=== PATIENT | female | born 1980 | race American Indian/Alaskan Native ===

== ENCOUNTER 2019-11-16 10:30 | Emergency (ER) | payer BC ==
[2019-11-16 10:38] VITALS: BP 133/85
--- NOTE | 2019-11-16 11:28 | Event Note ---
ED Screening Note ED Screening Note: a week ago states that twisted her ankle a week ago did not fall to the ground c/o right heel and right ankle pain tingling in the toes no numbness or complete weakness never injured herself before she is ambulatory PMHx HTN allergy: tramadol PCP: jose whelan TTP and edema over the right lateral malleolus This initial assessment/diagnostic orders/clinical plan/treatment(s) is/are subject to change based on patients health status, clinical progression and re- assessment by fellow clinical providers in the ED. Further treatment and workup at subsequent clinical providers discretion. Patient/guardian urged not to elope from the ED as their condition may be serious if not clinically assessed and managed. Initial orders include: XR right ankle/foot
--- NOTE | 2019-11-16 12:15 | XRay Report ---
RIGHT FOOT, 3 VIEWS 11/16/2019 INDICATION / CLINICAL INFORMATION: right ankle/foot pain. COMPARISON: None available. FINDINGS: Degenerative changes are seen in the first metatarsal phalangeal joint. Posterior plantar calcaneal spurring is noted. No fracture or dislocation. Signer Name: Panfilo Rouse MD Signed: 11/16/2019 12:11 PM Workstation Name: [id number]
--- NOTE | 2019-11-16 12:17 | XRay Report ---
RIGHT ANKLE 3 VIEWS INDICATION / CLINICAL INFORMATION: right ankle/foot pain COMPARISON: None available. FINDINGS: BONES / JOINT(S): No acute fracture or subluxation. Moderate/large calcaneal spur at the site of tru chment of the plantar aponeurosis. SOFT TISSUES: No significant abnormality. ADDITIONAL FINDINGS: None. Signer Name: Kevin López MD Signed: 11/16/2019 12:12 PM Workstation Name: [id number]
--- NOTE | 2019-11-16 12:42 | Emergency Department Report ---
ED Lower Extremity HPI - General Chief Complaint: Extremity Injury, Lower Stated Complaint: RT ANKLE INJURY/FOOT PAIN Time Seen by Provider: 11/16/19 11:23 Source: patient Mode of arrival: Wheelchair Limitations: No Limitations - History of Present Illness Initial Comments: a week ago states that twisted her ankle a week ago did not fall to the ground c/o right heel and right ankle pain tingling in the toes no numbness or complete weakness never injured herself before she is ambulatory with a limp PMHx HTN allergy: tramadol PCP: jose Slime [facility]wich - Related Data Previous Rx's Medication Instructions Recorded Last Taken Type Naproxen [EC-Naproxen] 500 mg PO BID PRN #14 tablet. 11/16/19 Unknown Rx Allergies Allergy/AdvReac Type Severity Reaction Status Date / Time tramadol AdvReac Itching Verified 11/16/19 10:33 ED Review of Systems ROS: Stated complaint: RT ANKLE INJURY/FOOT PAIN Other details as noted in HPI Comment: All other systems reviewed and negative ED Past Medical Hx - Past Medical History Previous Medical History?: Yes Hx Hypertension: Yes - Surgical History Past Surgical History?: Yes Additional Surgical History: x2 - Social History Smoking Status: Current Every Day Smoker Substance Use Type: None - Medications Home Medications: Home Medications Medication Instructions Recorded Confirmed Last Taken Type Naproxen [EC-Naproxen] 500 mg PO BID PRN #14 tablet. 11/16/19 Unknown Rx ED Physical Exam - General Limitations: No Limitations General appearance: alert, in no apparent distress - Head Head exam: Present: atraumatic, normocephalic - Eye Eye exam: Present: normal appearance - ENT ENT exam: Present: mucous membranes moist - Extremities Exam Extremities exam: Present: other (TTP and edema over the right lateral malleolus, FROM of the right ankle with pain upon flexion, ttp over the right heel, no joint laxity, no deformity, neurovascularly intact, Achilles tendon is intact) - Neurological Exam Neurological exam: Present: alert, oriented X3 - Psychiatric Psychiatric exam: Present: normal affect, normal mood - Skin Skin exam: Present: warm, dry, intact ED Course Vital Signs 11/16/19 10:33 Temperature 98.8 F Pulse Rate 79 Respiratory 18 Rate Blood Pressure 133/85 O2 Sat by Pulse 99 Oximetry ED Lower Extremity MDM - Radiology Data Radiology results: report reviewed RIGHT FOOT, 3 VIEWS 11/16/2019 INDICATION / CLINICAL INFORMATION: right ankle/foot pain. COMPARISON: None available. FINDINGS: Degenerative changes are seen in the first metatarsal phalangeal joint. Posterior plantar calcaneal spurring is noted. No fracture or dislocation. Signer Name: Panfilo Rouse MD Signed: 11/16/2019 12:11 PM Workstation Name: [id number] Transcribed By: DORIS Dictated By: Panfilo Rouse MD Electronically Authenticated By: Panfilo Rouse MD Signed Date/Time: 11/16/19 1211 DD/ 1207 TD/TT: RIGHT ANKLE 3 VIEWS INDICATION / CLINICAL INFORMATION: right ankle/foot pain COMPARISON: None available. FINDINGS: BONES / JOINT(S): No acute fracture or subluxation. Moderate/large calcaneal spur at the site of attachment of the plantar aponeurosis. SOFT TISSUES: No significant abnormality. ADDITIONAL FINDINGS: None. Signer Name: Kevin López MD Signed: 11/16/2019 12:12 PM Workstation Name: [id number] Transcribed By: SHAYY Dictated By: Kevin López MD Electronically Authenticated By: Kevin López MD Signed Date/Time: 11/16/19 121 DD/ 1212 TD/TT: - Medical Decision Making a week ago states that twisted her ankle a week ago did not fall to the ground c/o right heel and right ankle pain tingling in the toes no numbness or complete weakness never injured herself before she is ambulatory with a limp PMHx HTN allergy: tramadol PCP: jose whelan VSS on exam: TTP and edema over the right lateral malleolus, FROM of the right ankle with pain upon flexion, ttp over the right heel, no joint laxity, no deformity, neurovascularly intact, Achilles tendon is intact XR right foot: Degenerative changes are seen in the first metatarsal phalangeal joint. Posterior plantar calcaneal spurring is noted. No fracture or dislocation. xr right ankle: No acute fracture or subluxation. Moderate/large calcaneal spur at the site of attachment of the plantar aponeurosis. SOFT TISSUES: No significant abnormality. pt placed in judd bandage and remained neurovascularly intact. pt given prescription for naproxen, discussed all results with pt. advised please take medication as prescribed as needed. elevate the leg, ice for 15 minutes at a time, rest. use judd bandage as needed. do not wear too tightly and do not wear while sleeping. follow up with an orthopedic doctor. follow up with a primary care doctor. return to the emergency room for any new or worsening symptoms. - Differential Diagnosis strain, sprain, fx, dislocation Critical care attestation.: If time is entered above; I have spent that time in minutes in the direct care of this critically ill patient, excluding procedure time. ED Disposition Clinical Impression: Right foot pain Right ankle pain Qualifiers: Chronicity: acute Qualified Code(s): M25.571 - Pain in right ankle and joints of right foot Calcaneal spur Qualifiers: Laterality: right Qualified Code(s): M77.31 - Calcaneal spur, right foot Degenerative joint disease Qualifiers: Osteoarthritis location: foot Osteoarthritis type: unspecified Laterality: right Qualified Code(s): M19.071 - Primary osteoarthritis, right ankle and foot Disposition: DC-01 TO HOME OR SELFCARE Is pt being admited?: No Does the pt Need Aspirin: No Condition: Stable Additional Instructions: please take medication as prescribed as needed. elevate the leg, ice for 15 minutes at a time, rest. use judd bandage as needed. do not wear too tightly and do not wear while sleeping. follow up with an orthopedic doctor. follow up with a primary care doctor. return to the emergency room for any new or worsening symptoms. Prescriptions: Naproxen [EC-Naproxen] 500 mg PO BID PRN #14 tablet.dr MELENDEZ Reason: pain Referrals: JOSS LEE MD [Staff Physician] - 2-3 Days [facility] [Provider Group] - 2-3 Days Forms: Work/School Release Form(ED) Time of Disposition: 12:46 Print Language: COMORAN
== END 2019-11-16 13:12 | disposition home or self-care (01) ==
LOC: ED 10:30
DX: M77.31 Calcaneal spur, right foot (principal); M19.071 Primary osteoarthritis, right ankle and foot; I10 Essential (primary) hypertension; F17.200 Nicotine dependence, unspecified, uncomplicated; Z88.6 Allergy status to analgesic agent; Z98.890 Other specified postprocedural states

== ENCOUNTER 2021-03-01 19:20 | Emergency (ER) | payer BC ==
[2021-03-01] MEDS ORDERED: ACETAMINOPHEN 325 MG TAB PO ONE (19:40)
[2021-03-01] MEDS ORDERED: ASPIRIN 325 MG TAB PO ONE (19:40)
--- NOTE | 2021-03-01 19:40 | Event Note ---
ED Screening Note Date of service: 03/01/21 Time: 19:39 ED Screening Note: Six 41-year-old female presents with sudden onset of left-sided chest pain shortness of breath that began earlier today while she was generally down. Patient crying in triage. Tenderness to palpation left-sided chest. This initial assessment/diagnostic orders/clinical plan/treatment(s) is/are subject to change based on patients health status, clinical progression and re- assessment by fellow clinical providers in the ED. Further treatment and workup at subsequent clinical providers discretion. Patient/guardian urged not to elope from the ED as their condition may be serious if not clinically assessed and managed. Initial orders include: Chest pain protocol ordered.
--- NOTE | 2021-03-01 20:16 | XRay Report ---
CHEST 2 VIEWS INDICATION / CLINICAL INFORMATION: cp/sob. COMPARISON: None available. FINDINGS: SUPPORT DEVICES: None. HEART / MEDIASTINUM: No significant abnormality. LUNGS / PLEURA: No significant pulmonary or pleural abnormality. No pneumothorax. ADDITIONAL FINDINGS: No significant additional findings. IMPRESSION: 1. No acute findings. Signer Name: Roberto Garcia MD Signed: 03/01/2021 8:12 PM Workstation Name: [id number]
[2021-03-01 20:36] LABS: Alanine Aminotransferase 70 units/L (7-56); Albumin 3.4 g/dL (3.9-5); Blood Urea Nitrogen 11 mg/dL (7-17); Calcium 8.6 mg/dL (8.4-10.2); Hemolysis Index 21
[2021-03-01] MEDS ORDERED: ONDANSETRON 4 MG/2 ML INJ IV ONE (20:38)
[2021-03-01] MEDS ORDERED: MORPHINE 4 MG/1 ML INJ IV ONE (20:38)
[2021-03-01 20:39] LABS: BUN/Creatinine Ratio 22
[2021-03-01 20:48] LABS: Hematocrit 41.3 % (30.3-42.9); Hemoglobin 14.3 gm/dl (10.1-14.3); Mean Corpuscular HGB Conc 35 % (30-34); Mean Corpuscular Volume 91 fl (79-97); Platelet Count 277 K/mm3 (140-440); Red Blood Count 4.55 M/mm3 (3.65-5.03); Red Cell Distribution Width 13.7 % (13.2-15.2)
--- NOTE | 2021-03-01 21:22 | Emergency Department Report ---
ED Chest Pain HPI - General Chief Complaint: Chest Pain Stated Complaint: CHEST PAIN PUI?: No Time Seen by Provider: 03/01/21 20:36 Source: patient Mode of arrival: Wheelchair Limitations: No Limitations - History of Present Illness Initial Comments: Chief complaint: "I wish I had not done this." HPI: This is a 41-year-old female with history of hypertension, diabetes mellitus, BMI 52, mitral valve prolapse who presents with severe epigastric pain radiating to the chest and left upper breast 1 hour prior to arrival. Pain is dull sharp severe 10 out of 10 worse with lying flat and inspiration. Patient underwent gastric sleeve surgery 5 days ago on , February 24. [facility]. Patient returned by plane on Sunday. Since the surgery she has had trouble swallowing liquids. She feels as if the liquid becomes stuck in her epigastric region. There is no family history of cardiac disease. Patient recently stopped smoking tobacco. MD Complaint: chest pain -: Sudden, This evening Onset: during rest Pain Location: epigastric Pain Radiation: other (Under right breast chest) Severity: severe Severity scale (0 -10): 10 Quality: aching, sharp Consistency: constant Improves With: nothing Worsens With: inspiration, other (Laying flat) re: dyspnea Treatments Prior to Arrival: none - Related Data Previous Rx's Medication Instructions Recorded Last Taken Type Naproxen [EC-Naproxen] 500 mg PO BID PRN #14 tablet. 11/16/19 Unknown Rx Omeprazole 40 mg PO DAILY 30 Days #30 03/01/21 Unknown Rx tab.rap. Allergies Allergy/AdvReac Type Severity Reaction Status Date / Time tramadol AdvReac Itching Verified 11/16/19 10:33 Heart Score - HEART Score History: Slightly suspicious EKG: Normal Age: < 45 Risk factors: 1-2 risk factors Troponin: < normal limit HEART Score: 1 - EKG Read Time Time EKG Completed: 19:33 EKG Read Time: 19:34 ED Review of Systems ROS: Stated complaint: CHEST PAIN Other details as noted in HPI Comment: All other systems reviewed and negative Constitutional: denies: fever, malaise Respiratory: shortness of breath. denies: cough Cardiovascular: chest pain Gastrointestinal: abdominal pain Musculoskeletal: denies: back pain ED Past Medical Hx - Past Medical History Previous Medical History?: Yes Hx Hypertension: Yes Hx Diabetes: Yes Additional medical history: MVP - Surgical History Past Surgical History?: Yes Additional Surgical History: x2, GASTRIC SLEEVE 02/24/2021 - Social History Smoking Status: Current Every Day Smoker Substance Use Type: None - Medications Home Medications: Home Medications Medication Instructions Recorded Confirmed Last Taken Type Naproxen [EC-Naproxen] 500 mg PO BID PRN #14 tablet. 11/16/19 Unknown Rx Omeprazole 40 mg PO DAILY 30 Days #30 03/01/21 Unknown Rx tab.rap. ED Physical Exam - General Limitations: No Limitations General appearance: alert, in no apparent distress, other (Anxious appears in severe discomfort) - Head Head exam: Present: atraumatic, normocephalic - Eye Eye exam: Present: normal appearance - ENT ENT exam: Present: mucous membranes moist - Neck Neck exam: Present: normal inspection, full ROM - Respiratory Respiratory exam: Present: normal lung sounds bilaterally. Absent: respiratory distress, wheezes, rales, rhonchi - Cardiovascular Cardiovascular Exam: Present: regular rate, normal rhythm, normal heart sounds. Absent: systolic murmur, diastolic murmur, rubs, gallop - GI/Abdominal GI/Abdominal exam: Present: soft, normal bowel sounds. Absent: distended, tenderness, guarding, rebound - Extremities Exam Extremities exam: Present: normal inspection - Back Exam Back exam: Present: normal inspection - Neurological Exam Neurological exam: Present: alert, oriented X3 - Psychiatric Psychiatric exam: Present: normal affect, anxious - Skin Skin exam: Present: warm, dry, intact, normal color. Absent: rash ED Course Vital Signs 03/01/21 03/01/21 03/01/21 19:38 20:48 21:00 Temperature 98.5 F Pulse Rate 104 H 84 Respiratory 18 15 Rate Blood Pressure 152/92 Blood Pressure [Right] O2 Sat by Pulse 100 98 99 Oximetry 03/01/21 03/01/21 03/01/21 21:11 21:15 21:55 Temperature Pulse Rate 82 79 83 Respiratory 25 H 20 Rate Blood Pressure 130/91 136/84 Blood Pressure 136/84 [Right] O2 Sat by Pulse 97 96 Oximetry 03/01/21 03/01/21 03/01/21 22:01 22:15 22:31 Temperature Pulse Rate 76 84 75 Respiratory 19 13 21 Rate Blood Pressure 144/84 144/84 146/87 Blood Pressure [Right] O2 Sat by Pulse 99 97 98 Oximetry ED Medical Decision Making - Lab Data Result diagrams: 03/01/21 20:02 03/01/21 20:02 - EKG Data -: EKG Interpreted by Me EKG shows normal: sinus rhythm, axis, intervals, QRS complexes, ST-T waves Rate: normal - EKG Data Interpretation: normal EKG 03/01/21 21:22 EKG obtained 1932 EKG interpreted by me Normal sinus rhythm normal rate normal axis normal intervals no ST elevation no ST-T signs of ischemia normal EKG rate 90 bpm - Radiology Data Radiology results: report reviewed Patient Name: TIARA BEGUM Gender: Female Date of : 1980 Referring Provider: NICOLE PINO Organization: [facility] Accession Number: [id number] Requested Date: March 01, 2021 19:40 Report Status: Final Requested Procedure: 1 Procedure Description: XR chest routine 2V Modality: XR Findings Reporting MD: Roberto Garcia Dictation Time: March 01, 2021 19:12 Development Chemist: Not available Glass Science Engineer Date: CHEST 2 VIEWS INDICATION / CLINICAL INFORMATION: cp/sob. COMPARISON: None available. FINDINGS: SUPPORT DEVICES: None. HEART / MEDIASTINUM: No significant abnormality. LUNGS / PLEURA: No significant pulmonary or pleural abnormality. No pneumothorax. ADDITIONAL FINDINGS: No significant additional findings. IMPRESSION: 1. No acute findings. Signer Name: Roberto Garcia MD Signed: 03/01/2021 7:12 PM Workstation Name: [email or web address] Patient Name: TIARA BEGUM Gender: Female Date of : 1980 Referring Provider: PADMA DAMICO Organization: [facility] Accession Number: [id number] Requested Date: March 01, 2021 20:38 Report Status: Final Requested Procedure: 1 Procedure Description: CT angio chest Modality: CT Findings Reporting MD: Ross Turner Dictation Time: March 01, 2021 20:57 Development Chemist: Not available Glass Science Engineer Date: CTA CHEST WITH CONTRAST INDICATION / CLINICAL INFORMATION: Patient complains of chest pain, recent travel, recent surgery. TECHNIQUE: Axial CT images were obtained through the chest after injection of IV contrast. 3 plane MIP and/or 3D reconstructions were produced. All CT scans at this location are performed using CT dose reduction for ALARA by means of automated exposure control. COMPARISON: Chest radiograph from the same date. FINDINGS: PULMONARY ARTERIES: No pulmonary emboli. THORACIC AORTA: No significant abnormality. HEART: No significant abnormality. CORONARY ARTERIES: No significant calcification. MEDIASTINUM / ALMA: No significant abnormality. PLEURA: No pleural effusion. No pneumothorax. LUNGS: No acute air space or interstitial disease. ADDITIONAL FINDINGS: There is fluid within the mid to distal esophagus. UPPER ABDOMEN: Sleeve gastrectomy changes. SKELETAL STRUCTURES: No significant osseous abnormality. IMPRESSION: 1. No CT evidence for pulmonary embolism. 2. Fluid within the mid to distal esophagus can be seen in the setting of gastroesophageal reflux. Signer Name: Ross Turner MD Signed: 03/01/2021 8:57 PM Workstation Name: [email or web address] Patient Name: TIARA BEGUM Gender: Female Date of : 1980 Referring Provider: PADMA DAMICO Organization: [facility] Accession Number: [id number] Requested Date: March 01, 2021 21:19 Report Status: Final Requested Procedure: 1 Procedure Description: CT abdomen pelvis w con Modality: CT Findings Reporting MD: Ross Turner Dictation Time: March 01, 2021 21:01 Development Chemist: Not available Glass Science Engineer Date: CT ABDOMEN AND PELVIS WITH CONTRAST INDICATION / CLINICAL INFORMATION: Pt complains of epigastric pain, recent Gastric Sleeve procedure. TECHNIQUE: Axial CT images were obtained through the abdomen and pelvis following the administration of intravenous contrast. All CT scans at this location are performed using CT dose reduction for ALARA by means of automated exposure control. COMPARISON: None available. FINDINGS: LOWER CHEST: No significant abnormality. LIVER: No significant abnormality. GALLBLADDER: Surgically absent. PANCREAS: No significant abnormality. SPLEEN: No significant abnormality. ADRENALS: No significant abnormality. KIDNEYS / URETERS: No significant abnormality. URINARY BLADDER: No significant abnormality. REPRODUCTIVE ORGANS: No significant abnormality. STOMACH / SMALL BOWEL: Sleeve gastrectomy changes with mild adjacent inflammation/edema. There is a small hiatal hernia. COLON: No significant abnormality. APPENDIX: No significant abnormality. PERITONEUM: No free fluid. No free air. No fluid collection. LYMPH NODES: No significant adenopathy. AORTA / ARTERIES: No significant abnormality. IVC / VEINS: No significant abnormality. SKELETAL SYSTEM: No significant abnormality. ADDITIONAL FINDINGS: None. IMPRESSION: 1. No acute abdominopelvic abnormality. 2. Sleeve gastrectomy changes with mild adjacent formation/edema, which would not be unexpected in a patient who has recently had surgery. 3. Small hiatal hernia. Signer Name: Ross Turner MD - Medical Decision Making Chest pain dysphagia after gastric sleeve surgery: Due to severe pain apparently sudden onset pulmonary embolism and core coronary syndrome ruled out. CT angio chest revealed fluid in esophagus which confirms dysphagia. troponin x 2 with normal EKG rules out ACS with low pretest probability. Patient presents 5 days after gastric sleeve surgery on last . I have informed her that dysphagia is quite common. I have referred patient to both our bariatric surgeon Dr. Farias and [place] [facility] for outpatient treatment. I recommended clear liquid diet. Stricture is a possibility. However recommended rest and gentle p.o. hydration Patient has a history of GERD. She has used ranitidine in the past. The symptoms occurred after attempting to drink protein shake. Will prescribe omeprazole ODT for 30 days. Critical care attestation.: If time is entered above; I have spent that time in minutes in the direct care of this critically ill patient, excluding procedure time. ED Disposition Clinical Impression: GERD (gastroesophageal reflux disease), History of sleeve gastrectomy, Dysphagia Disposition: - TO HOME OR SELFCARE Is pt being admited?: No Does the pt Need Aspirin: No Condition: Stable Additional Instructions: Please return to the emergency department if your symptoms worsen. Please return to the emergency department if you are unable to swallow liquid. Prescriptions: Omeprazole 40 mg PO DAILY 30 Days #30 tab.rap.dr Referrals: [facility] [Other] - 3-5 Days OSWALDO FARIAS MD [Staff Physician] - 3-5 Days MAYDA MIXON MD [Staff Physician] - 3-5 Days
--- NOTE | 2021-03-01 22:02 | Cat Scan Report ---
CTA CHEST WITH CONTRAST INDICATION / CLINICAL INFORMATION: Patient complains of chest pain, recent travel, recent surgery. TECHNIQUE: Axial CT images were obtained through the chest after injection of IV contrast. 3 plane MIP and/or 3D reconstructions were produced. All CT scans at this location are performed using CT dose reduction f or ALARA by means of automated exposure control. COMPARISON: Chest radiograph from the same date. FINDINGS: PULMONARY ARTERIES: No pulmonary emboli. THORACIC AORTA: No significant abnormality. HEART: No significant abnormality. CORONARY ARTERIES: No significant calcification. MEDIASTINUM / ALMA: No significant abnormality. PLEURA: No pleural effusion. No pneumothorax. LUNGS: No acute air space or interstitial disease. ADDITIONAL FINDINGS: There is fluid within the mid to distal esophagus. UPPER ABDOMEN: Sleeve gastrectomy changes. SKELETAL STRUCTURES: No significant osseous abnormality. IMPRESSION: 1. No CT evidence for pulmonary embolism. 2. Fluid within the mid to distal esophagus can be seen in the setting of gastroesophageal reflux. Signer Name: Ross Turner MD Signed: 03/01/2021 9:57 PM Workstation Name: [id number]
--- NOTE | 2021-03-01 22:06 | Cat Scan Report ---
CT ABDOMEN AND PELVIS WITH CONTRAST INDICATION / CLINICAL INFORMATION: Pt complains of epigastric pain, recent Gastric Sleeve procedure. TECHNIQUE: Axial CT images were obtained through the abdomen and pelvis following the administration of intraven ous contrast. All CT scans at this location are performed using CT dose reduction for ALARA by means of automated exposure control. COMPARISON: None available. FINDINGS: LOWER CHEST: No significant abnormality. LIVER: No significant abnormality. GALLBLADDER: Surgically absent. PANCREAS: No significant abnormality. SPLEEN: No significant abnormality. ADRENALS: No significant abnormality. KIDNEYS / URETERS: No significant abnormality. URINARY BLADDER: No significant abnormality. REPRODUCTIVE ORGANS: No significant abnormality. STOMACH / SMALL BOWEL: Sleeve gastrectomy changes with mild adjacent inflammation/edema. There is a s mall hiatal hernia. COLON: No significant abnormality. APPENDIX: No significant abnormality. PERITONEUM: No free fluid. No free air. No fluid collection. LYMPH NODES: No significant adenopathy. AORTA / ARTERIES: No significant abnormality. IVC / VEINS: No significant abnormality. SKELETAL SYSTEM: No significant abnormality. ADDITIONAL FINDINGS: None. IMPRESSION: 1. No acute abdominopelvic abnormality. 2. Sleeve gastrectomy changes with mild adjacent formation/edema, which would not be unexpected in a patient who has recently had surgery. 3. Small hiatal hernia. Signer Name: Ross Turner MD Signed: 03/01/2021 10:01 PM Workstation Name: [id number]
[2021-03-01 22:08] LABS: RBC Morphology Normal; Total Cells Counted 100
[2021-03-01] MEDS ORDERED: LIDOCAINE VISCOUS 2% 15 ML ORAL LIQD PO ONE (23:05)
[2021-03-01] MEDS ORDERED: ALUM-MAG HYDROXIDE-SIMETHICONE 200-200-20MG/5ML ORAL LIQD 30 ML PO ONE (23:05)
[2021-03-01 23:58] VITALS: BP 141/90
--- NOTE | 2021-03-02 14:44 | Electrocardiograph Report ---
[facility] Test Date: 2021-03-01 Test Time: 19:33:40 Pat Name: TIARA BEGUM Department: Room: Gender: F Peanut [place]ter: RONALD : 1980 Requested By: NICOLE PINO Order Number: [id number] Reading MD: Emery Faustin Measurements Intervals [place] Rate: 87 P: 74 MD: 138 QRS: 31 QRSD: 87 T: 32 QT: 355 QTc: 427 Interpretive Statements Sinus rhythm Normal ECG No previous ECG available for comparison Electronically Signed On 03-02-2021 14:44:30 EDT by Emery Faustin
== END 2021-03-01 23:59 | disposition home or self-care (01) ==
LOC: ED 19:20
DX: K21.9 Gastro-esophageal reflux disease without esophagitis (principal); R13.10 Dysphagia, unspecified; I10 Essential (primary) hypertension; E11.9 Type 2 diabetes mellitus without complications; F17.200 Nicotine dependence, unspecified, uncomplicated; Z98.890 Other specified postprocedural states; Z79.899 Other long term (current) drug therapy; Z88.8 Allergy status to other drugs, medicaments and biological substances
CPT/HCPCS: 36415; 71046; 71275; 74177; 80053; 84484; 85007; 85025; 93005; 96374; 96375; 99284; J2270; J2405; Q9967

== ENCOUNTER 2021-03-23 22:13 | Emergency (ER) | payer BC, OTHER ==
[2021-03-24 01:00] VITALS: BP 155/86
[2021-03-24] MEDS ORDERED: oxyCODONE /ACETAMINOPHEN 5-325MG TAB PO ONE (04:33)
--- NOTE | 2021-03-24 05:42 | XRay Report ---
EXAMINATION: Cervical spine radiograph series, 3 views, 03/24/2021 CLINICAL INFORMATION: Neck pain. No history of trauma is given COMPARISON: None. FINDINGS: There is normal alignment of the cervical vertebral bodies. Vertebral body height and inter vertebral disc spaces are well maintained. There is no significant bony degenerative change. IMPRESSION: 1. No radiographic evidence of acute bony abnormality of the cervical spine. Signer Name: Aliya Lema MD Signed: 03/24/2021 5:37 AM Workstation Name: [id number]
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
== END 2021-03-24 06:35 | disposition home or self-care (01) ==
LOC: ED 22:13
DX: S16.1XXA Strain of muscle, fascia and tendon at neck level, initial encounter (principal); M54.9 Dorsalgia, unspecified; I10 Essential (primary) hypertension; E11.9 Type 2 diabetes mellitus without complications; Z88.8 Allergy status to other drugs, medicaments and biological substances; Z79.899 Other long term (current) drug therapy; Z98.890 Other specified postprocedural states; V49.59XA Passenger injured in collision with other motor vehicles in traffic accident, initial encounter; Y92.410 Unspecified street and highway as the place of occurrence of the external cause; Y93.89 Activity, other specified; Y99.8 Other external cause status
CPT/HCPCS: 72040

== ENCOUNTER 2022-05-30 12:13 | Emergency (ER) | payer BC ==
--- NOTE | 2022-05-30 13:02 | Emergency Department Report ---
ED Abdominal Pain HPI - General Stated Complaint: PELVIC AND BACK PAIN PUI?: No Time Seen by Provider: 05/30/22 13:01 Source: patient Mode of arrival: Ambulatory Limitations: No Limitations - History of Present Illness Initial Comments: rlq and flank pain nausea no vomiting hot but no fever BM today normal no discharge decrease urine no longer menstrating ambulatory to ER in [place] Complaint: abdominal pain -: Gradual Location: RLQ Radiation: none Migration to: no migration Severity: moderate Severity scale (0 -10): 4 Quality: cramping Improves With: nothing Worsens With: movement Associated Symptoms: denies other symptoms, nausea. denies: vomiting, diarrhea, fever, chills, constipation, dysuria, hematemesis, hematochezia, melena, hematuria, anorexia, syncope - Related Data LMP (females 10-50): other Previous Rx's Medication Instructions Recorded Last Taken Type Naproxen [EC-Naproxen] 500 mg PO BID PRN #14 tablet. 11/16/19 Unknown Rx Omeprazole 40 mg PO DAILY 30 Days #30 03/01/21 Unknown Rx tab.rap. Ketorolac [Toradol] 10 mg PO Q6H PRN #14 tablet 03/24/21 Unknown Rx methOCARBAMOL [Robaxin TAB] 500 mg PO Q6H #20 tablet 03/24/21 Unknown Rx Allergies Allergy/AdvReac Type Severity Reaction Status Date / Time tramadol AdvReac Itching Verified 05/30/22 13:04 ED Review of Systems ROS: Stated complaint: PELVIC AND BACK PAIN Other details as noted in HPI Comment: All other systems reviewed and negative ED Past Medical Hx - Past Medical History Previous Medical History?: Yes Hx Hypertension: Yes Hx Diabetes: Yes Hx GERD: Yes Additional medical history: MVP - Surgical History Past Surgical History?: Yes Additional Surgical History: x2, GASTRIC SLEEVE 02/24/2021 - Family History Family history: no significant - Social History Smoking Status: Current Every Day Smoker Substance Use Type: None - Medications Home Medications: Home Medications Medication Instructions Recorded Confirmed Last Taken Type Naproxen [EC-Naproxen] 500 mg PO BID PRN #14 tablet. 11/16/19 Unknown Rx Omeprazole 40 mg PO DAILY 30 Days #30 03/01/21 Unknown Rx tab.rap. Ketorolac [Toradol] 10 mg PO Q6H PRN #14 tablet 03/24/21 Unknown Rx methOCARBAMOL [Robaxin TAB] 500 mg PO Q6H #20 tablet 03/24/21 Unknown Rx ED Physical Exam - General Limitations: No Limitations General appearance: alert, in no apparent distress - Head Head exam: Present: atraumatic, normocephalic - Eye Eye exam: Present: normal appearance - ENT ENT exam: Present: mucous membranes moist - Neck Neck exam: Present: normal inspection - Respiratory Respiratory exam: Present: normal lung sounds bilaterally. Absent: respiratory distress - Cardiovascular Cardiovascular Exam: Present: regular rate, normal rhythm. Absent: systolic murmur, diastolic murmur, rubs, gallop - GI/Abdominal GI/Abdominal exam: Present: soft, normal bowel sounds - Extremities Exam Extremities exam: Present: normal inspection - Back Exam Back exam: Present: normal inspection - Neurological Exam Neurological exam: Present: alert, oriented X3 - Psychiatric Psychiatric exam: Present: normal affect, normal mood - Skin Skin exam: Present: warm, dry, intact, normal color. Absent: rash ED Course - Reevaluation(s) Reevaluation #1: 05/30/22 13:03 losartan metformin gerd med Critical care attestation.: If time is entered above; I have spent that time in minutes in the direct care of this critically ill patient, excluding procedure time. ED Disposition Clinical Impression: Abdominal pain Disposition: 30 STILL A PATIENT Is pt being admited?: No Does the pt Need Aspirin: No Condition: Stable Time of Disposition: 13:06
[2022-05-30 14:30] LABS: Hematocrit 40.9 % (30.3-42.9); Hemoglobin 13.9 gm/dl (10.1-14.3); Mean Corpuscular HGB Conc 34 % (30-34); Mean Corpuscular Volume 92 fl (79-97); Platelet Count 223 K/mm3 (140-440); Red Blood Count 4.43 M/mm3 (3.65-5.03); Red Cell Distribution Width 12.6 % (13.2-15.2)
[2022-05-30 15:50] LABS: Total Cells Counted 100
[2022-05-30 15:51] LABS: Basophils % (Manual) 0 % (0.0-1.8); Eosinophils % (Manual) 0 % (0.0-4.3); Platelet Estimate Consistent w Auto; RBC Morphology Normal
[2022-05-30 16:03] LABS: Alanine Aminotransferase 14 units/L (7-56); Albumin 4.1 g/dL (3.9-5); Blood Urea Nitrogen 7 mg/dL (7-17); Calcium 9.2 mg/dL (8.4-10.2); Hemolysis Index 14
[2022-05-30 16:09] LABS: BUN/Creatinine Ratio 14; Bilirubin,Direct < 0.2 mg/dL (0-0.2)
[2022-05-30 21:43] VITALS: BP 126/75
[2022-05-30] MEDS ORDERED: ONDANSETRON 4 MG/2 ML INJ IV ONE (23:46)
[2022-05-30] MEDS ORDERED: MORPHINE 4 MG/1 ML INJ IV ONE (23:46)
--- NOTE | 2022-05-31 01:31 | Cat Scan Report ---
CT ABDOMEN AND PELVIS WITH CONTRAST INDICATION / CLINICAL INFORMATION: RLQ pain. TECHNIQUE: Axial CT images were obtained through the abdomen and pelvis after IV contrast. All CT sc ans at this location are performed using CT dose reduction for ALARA by means of automated exposure c ontrol. COMPARISON: None available. FINDINGS: LOWER CHEST: Circumferential wall thickening of the lower esophagus is demonstrated. Additionally a s mall hiatal hernia is present. Surgical changes involve the GE junction and stomach. LIVER: No focal lesion. No acute findings. GALLBLADDER / BILE DUCTS: Cholecystectomy. Biliary ducts grossly unremarkable. SPLEEN: No significant abnormality. PANCREAS: No significant abnormality. ADRENALS: No significant abnormality. KIDNEYS/URETERS: No stones or hydronephrosis. No solid renal lesion. STOMACH / DUODENUM / SMALL BOWEL: Postoperative changes are demonstrated at the stomach suggesting pr ior bariatric surgery. No focal abnormality of the gastric wall is demonstrated. No inflammatory morrison ges are present. The duodenum and small bowel as well as the mesentery demonstrate no significant abn ormalities. COLON: No significant abnormality. APPENDIX: The appendix is not identified and may be surgically absent. No inflammatory changes in the right lower quadrant. PERITONEUM: No free air or free fluid are present within the abdomen or pelvis. LYMPH NODES: No significant adenopathy. AORTA / ARTERIES: No significant abnormality. IVC / VEINS: No significant abnormality. URINARY BLADDER: No significant abnormality. REPRODUCTIVE ORGANS: No significant abnormality. Small left ovarian cyst. SKELETAL SYSTEM: Moderate bilateral facet arthropathy at L4-5 and L5-S1. ADDITIONAL ABDOMINAL/PELVIC FINDINGS: None. IMPRESSION: 1. No imaging findings to suggest etiology of the provided symptoms. Signer Name: Austyn Otoole II, MD Signed: 05/31/2022 1:27 AM Workstation Name: [id number]
[2022-05-31 02:13] LABS: Color,Urine Yellow (Yellow)
[2022-05-31 02:15] LABS: Mucus,Urine 2+ /HPF; WBC,Urine < 1.0 /HPF (0.0-6.0)
--- NOTE | 2022-05-31 02:18 | Emergency Department Report ---
ED Abdominal Pain HPI - General Chief Complaint: Urogenital-Female Stated Complaint: PELVIC AND BACK PAIN Time Seen by Provider: 05/30/22 13:01 Source: patient Mode of arrival: Ambulatory Limitations: No Limitations - History of Present Illness Initial Comments: Patient is a 42-year-old -[place]inamese female with a history of hypertension, [id number] diabetes and GERD who presents to the ED with complaint of acute onset persistent right lower quadrant abdominal pain that radiates to the right flank and lower back with nausea and vomiting, urinary frequency and urgency for the last 3 weeks, worse in the last 5 days. Patient states that the pain has been progressively getting worse since the onset. Patient states that she had a slip and fall injury about 3 weeks ago but the there was no pain at the time. Patient denies dizziness, syncope, numbness and tingling or weakness of lower extremities bilaterally, vaginal bleeding, vaginal discharge, dysuria, diarrhea, hematochezia, hematemesis, chest pain or shortness of breath, head or neck injuries. MD Complaint: abdominal pain -: Gradual, week(s) (3) Location: RLQ, R flank Radiation: RLQ, suprapubic, R flank Migration to: no migration Severity: moderate Severity scale (0 -10): 10 Quality: cramping Improves With: nothing Worsens With: movement Associated Symptoms: denies other symptoms, nausea, vomiting. denies: diarrhea, fever, chills, constipation, dysuria, hematemesis, hematochezia, melena, hem aturia, anorexia, syncope - Related Data Previous Rx's Medication Instructions Recorded Last Taken Type Naproxen [EC-Naproxen] 500 mg PO BID PRN #14 tablet. 11/16/19 Unknown Rx Omeprazole 40 mg PO DAILY 30 Days #30 03/01/21 Unknown Rx tab.rap. Ketorolac [Toradol] 10 mg PO Q6H PRN #14 tablet 03/24/21 Unknown Rx methOCARBAMOL [Robaxin TAB] 500 mg PO Q6H #20 tablet 03/24/21 Unknown Rx Acetaminophen/Codeine [Tylenol 1 tab PO Q6H PRN #12 tab 05/31/22 Unknown Rx /Codeine # 3 tab] Ibuprofen [Motrin] 800 mg PO Q8HR PRN #30 tablet 05/31/22 Unknown Rx methOCARBAMOL [Robaxin TAB] 750 mg PO Q8H PRN #30 tab 05/31/22 Unknown Rx predniSONE [Deltasone] 40 mg PO QDAY #10 tab 05/31/22 Unknown Rx Allergies Allergy/AdvReac Type Severity Reaction Status Date / Time tramadol AdvReac Itching Verified 05/30/22 13:04 ED Review of Systems ROS: Stated complaint: PELVIC AND BACK PAIN Other details as noted in HPI Constitutional: denies: chills, fever Eyes: denies: eye pain, eye discharge, vision change ENT: denies: ear pain, throat pain Respiratory: denies: cough, shortness of breath, wheezing Cardiovascular: denies: chest pain, palpitations Endocrine: no symptoms reported Gastrointestinal: abdominal pain (RLQ and right flank abdominal pain), nausea, vomiting. denies: diarrhea Genitourinary: urgency, frequency. denies: dysuria, hematuria, discharge Musculoskeletal: back pain (lower back pain), arthralgia. denies: joint s welling Skin: denies: rash, lesions Neurological: denies: headache, weakness, paresthesias Psychiatric: denies: anxiety, depression Hematological/Lymphatic: denies: easy bleeding, easy bruising ED Past Medical Hx - Past Medical History Previous Medical History?: Yes Hx Hypertension: Yes Hx Diabetes: Yes Hx GERD: Yes Additional medical history: MVP - Surgical History Past Surgical History?: Yes Additional Surgical History: x2, GASTRIC SLEEVE 02/24/2021 - Social History Smoking Status: Current Every Day Smoker Substance Use Type: None - Medications Home Medications: Home Medications Medication Instructions Recorded Confirmed Last Taken Type Naproxen [EC-Naproxen] 500 mg PO BID PRN #14 tablet. 11/16/19 Unknown Rx Omeprazole 40 mg PO DAILY 30 Days #30 03/01/21 Unknown Rx tab.rap. Ketorolac [Toradol] 10 mg PO Q6H PRN #14 tablet 03/24/21 Unknown Rx methOCARBAMOL [Robaxin TAB] 500 mg PO Q6H #20 tablet 03/24/21 Unknown Rx Acetaminophen/Codeine [Tylenol 1 tab PO Q6H PRN #12 tab 05/31/22 Unknown Rx /Codeine # 3 tab] Ibuprofen [Motrin] 800 mg PO Q8HR PRN #30 tablet 05/31/22 Unknown Rx methOCARBAMOL [Robaxin TAB] 750 mg PO Q8H PRN #30 tab 05/31/22 Unknown Rx predniSONE [Deltasone] 40 mg PO QDAY #10 tab 05/31/22 Unknown Rx ED Physical Exam - General Limitations: No Limitations General appearance: alert, in no apparent distress - Head Head exam: Present: atraumatic, normocephalic, normal inspection - Eye Eye exam: Present: normal appearance, PERRL, EOMI Pupils: Present: normal accommodation - ENT ENT exam: Present: normal exam, normal orophraynx, mucous membranes moist, TM's normal bilaterally, normal external ear exam - Neck Neck exam: Present: normal inspection, full ROM. Absent: tenderness - Respiratory Respiratory exam: Present: normal lung sounds bilaterally. Absent: respiratory distress, wheezes, rales, rhonchi, chest wall tenderness, accessory muscle use, decreased breath sounds - Cardiovascular Cardiovascular Exam: Present: regular rate, normal rhythm, normal heart sounds. Absent: systolic murmur, diastolic murmur, rubs, gallop - GI/Abdominal GI/Abdominal exam: Present: soft, tenderness (Palpable RLQ and right flank tenderness), normal bowel sounds. Absent: guarding, rebound, hyperactive bowel sounds, hypoactive bowel sounds, bruit - Extremities Exam Extremities exam: Present: normal inspection, full ROM, normal capillary refill. Absent: tenderness, pedal edema, joint swelling - Back Exam Back exam: Present: normal inspection, full ROM, tenderness (Palpable lumbosacral paraspinal musculoskeletal tenderness), muscle spasm, paraspinal tenderness. Absent: CVA tenderness (R), CVA tenderness (L), vertebral tenderness - Neurological Exam Neurological exam: Present: alert, oriented X3, CN II-XII intact, normal gait, reflexes normal - Psychiatric Psychiatric exam: Present: normal affect, normal mood - Skin Skin exam: Present: warm, dry, intact, normal color. Absent: rash ED Course Vital Signs 05/30/22 05/30/22 05/31/22 13:02 21:41 01:26 Temperature 98.3 F 98.5 F Pulse Rate 60 83 Respiratory 18 16 16 Rate Blood Pressure 127/61 126/75 [Left] O2 Sat by Pulse 99 100 Oximetry ED Medical Decision Making - Lab Data Result diagrams: 05/30/22 13:07 05/30/22 13:07 - Radiology Data Radiology results: report reviewed, image reviewed [facility] [address] [place] [address] Cat Scan Report Signed Patient: TIARA BEGUM MR# : [id number] : 1980 Acct:[id number] Age/Sex: 42 / F ADM Date: 05/30/22 Loc: ED Attending Dr: Ordering Physician: ADONIS JOSEPH Date of Service: 05/30/22 Procedure(s): CT abdomen pelvis w con Accession Number(s): [id number] cc: ADONIS JOSEPH CT ABDOMEN AND PELVIS WITH CONTRAST INDICATION / CLINICAL INFORMATION: RLQ pain. TECHNIQUE: Axial CT images were obtained through the abdomen and pelvis after IV contrast. All CT scans at this location are performed using CT dose reduction for ALARA by means of automated expos ure control. COMPARISON: None available. FINDINGS: LOWER CHEST: Circumferential wall thickening of the lower esophagus is demonstr ated. Additionally a small hiatal hernia is present. Surgical changes involve the GE junction and st omach. LIVER: No focal lesion. No acute findings. GALLBLADDER / BILE DUCTS: Cholecystectomy. Biliary ducts grossly unremarkable. SPLEEN: No significant abnormality. PANCREAS: No significant abnormality. ADRENALS: No significant abnormality. KIDNEYS/URETERS: No stones or hydronephrosis. No solid renal lesion. STOMACH / DUODENUM / SMALL BOWEL: Postoperative changes are demonstrated at the stomach suggesting prior bariatric surgery. No focal abnormality of the gastric wall is demonstrated. No inflammatory changes are present. The duodenum and small bowel as well as the mesentery demonstrate no significant abnormalities. COLON: No significant abnormality. APPENDIX: The appendix is not identified and may be surgically absent. No inflammatory changes in the right lower quadrant. PERITONEUM: No free air or free fluid are present within the abdomen or pelvis. LYMPH NODES: No significant adenopathy. AORTA / ARTERIES: No significant abnormality. IVC / VEINS: No significant abnormality. URINARY BLADDER: No significant abnormality. REPRODUCTIVE ORGANS: No significant abnormality. Small left ovarian cyst. SKELETAL SYSTEM: Moderate bilateral facet arthropathy at L4-5 and L5-S1. ADDITIONAL ABDOMINAL/PELVIC FINDINGS: None. IMPRESSION: 1. No imaging findings to suggest etiology of the provided symptoms. Signer Name: Raúl Peña II, MD Signed: 05/31/2022 1:27 AM Workstation Name: [id number] Transcribed By: FRANCHESCA Dictated By: RAÚL PEÑA II, MD Electronically Authenticated By: RAÚL PEÑA II, MD Signed Date/Time: 05/31/22126 DD/ 9 TD/TT: - Differential Diagnosis appendicitis; kidney stones; ovarian cyst; ; muscle spasm Critical care attestation.: If time is entered above; I have spent that time in minutes in the direct care of this critically ill patient, excluding procedure time. ED Disposition Clinical Impression: Acute abdominal pain in right lower quadrant, Spasm of muscle of lower back Disposition: HOME / SELF CARE / HOMELESS Is pt being admited?: No Does the pt Need Aspirin: No Condition: Stable Instructions: Muscle Cramps and Spasms, [id number], Abdominal Pain, Adult, [id number], Flank Pain, Adult, [id number] Additional Instructions: All lab test results were reviewed and are all nonactionable. Abdomen pelvis CT scan with IV contrast showed no acute abnormalities. You are symptoms are likely due to muscle strain or muscle spasm. Therefore take medication with food, drink plenty of fluids and follow-up with your primary care physician in 5 to 7 days for reevaluation. Return to the ED immediately if symptoms get worse. Prescriptions: predniSONE [Deltasone] 40 mg PO QDAY #10 tab Ibuprofen [Motrin] 800 mg PO Q8HR PRN #30 tablet PRN Reason: Pain , Severe (7-10) methOCARBAMOL [Robaxin TAB] 750 mg PO Q8H PRN #30 tab PRN Reason: Muscle Spasm Acetaminophen/Codeine [Tylenol /Codeine # 3 tab] 1 tab PO Q6H PRN #12 tab PRN Reason: Pain , Severe (7-10) Referrals: AWAIS SHEPARD MD [Staff Physician] - 3-5 Days Forms: Work/School Release Form(ED) Time of Disposition: 02:19 Print Language: OCCITAN
== END 2022-05-31 04:23 | disposition home or self-care (01) ==
LOC: ED 12:13
DX: R10.9 Unspecified abdominal pain (principal); I10 Essential (primary) hypertension; F17.200 Nicotine dependence, unspecified, uncomplicated; E11.9 Type 2 diabetes mellitus without complications; Z88.5 Allergy status to narcotic agent
CPT/HCPCS: 36415; 74177; 80048; 80076; 81001; 83690; 85007; 85025; 96374; 96375; 99284; J2270; J2405; Q9967